=== PATIENT | female | born 1995 | race Caucasian/White ===

== ENCOUNTER → 2019-10-02 15:30 | Outpatient (BNVA) | payer BC, SELFPAY | PROVIDERS: Family Provider Family Medicine; PCP Family Medicine; Visit Provider Nurse Practitioner Family | DX: S62.396A Other fracture of fifth metacarpal bone, right hand, initial encounter for closed fracture (principal); W22.8XXA Striking against or struck by other objects, initial encounter | CPT/HCPCS: 73130 ==

== ENCOUNTER 2023-04-23 11:28 | Emergency (ER) | payer MEDICAID, SELFPAY ==
[2023-04-23 11:41] VITALS: BP 124/82; PULSE 112; RESP 15; TEMP 37.1; O2SAT 100; BMI 24.3
[2023-04-23 12:05] LABS: Basophils % 0.1 %; Eosinophils % 0.4 %; Hematocrit 37.6 % (36-47); Lymphocytes # 1.7 10^3/uL (0.8-4.8); Lymphocytes % 21.3 %; Mean Corpuscular HGB Conc 32.7 g/dL (30-55); Mean Corpuscular Hemoglobin 25.5 pg (27-33); Mean Platelet Volume 9.5 fL (7.4-10.4); Monocytes # 0.9 10^3/uL (0.2-0.9); Monocytes % 10.4 %; Neutrophils # 5.51 10^3/uL (1.8-7.7); Neutrophils % 67.6 %; Nucleated Red Blood Cells % 0 %; Platelet Count 212 10^3/cmm (157-399); Red Blood Count 4.82 10^6/uL (3.85-5.65); Red Cell Distribution Width 18.1 % (12.1-15.1); White Blood Count 8.16 10^3/uL (3.29-11.43)
--- NOTE | 2023-04-23 12:18 | ED_ITS ---
HPI - Abdominal Pain 2 General: Chief Complaint: Abdominal Pain Stated Complaint: abd pain Time Seen by Provider: 04/23/23 11:44 History of Present Illness: 27-year-old female presents emergency de partment with complaints of right lower quadrant abdominal pain that started 2 days ago. She states she is sexually active and does not use contraception. She states the pain is a dull achy and intermittently sharp 3 out of 10 pain. She states it feels like it radiates around to her right flank area. She denies previous surgical intervention. She states she does have intermittent nausea with varying episodes of vomiting. She denies fevers chills or night sweats. Associated Symptoms: Reports nausea and vomiting Review of Systems 2 General: Reports: 10 or more systems reviewed and unremarkable except in HPI and below GI: Reports: abdominal pain, nausea and vomiting [facility] ED 2 PFSH: Social History (Updated 10/02/19 @ 15:12 by Lulu Lozano LPN) Smoking and tobacco/nicotine status: former use of tobacco/nicotine Physical Exam 2 Narrative: EXAM NARRATIVE: Constitutional: the patient appears well nourished and of normal development. Vital signs as documented. No acute distress at present. Alert and oriented-to person, place, time and situation. Head, eyes, ears, nose, mouth, throat: Normocephalic, atraumatic. Pupils-equal, round, reactive to light. No scleral icterus. Normal-appearing external ears. Normal appearing nasal turbinates, no drainage. No obvious oral lesions, posterior oropharynx without erythema or exudates. Neck: Supple, trachea is midline, no lymphadenopathy, no jugular venous distension, thyromegaly, or carotid bruits. Carotid upstrokes are brisk bilaterally. Lungs: clear to auscultation to all lung kruger. Symmetrical rise and fall of chest, no obvious signs of increased work of breathing at present. Cardiac: Regular rate and rhythm, positive S1, S2. No murmurs, rubs or gallops that I can appreciate Abdomen: Soft, right lower quadrant to palpation, normal active bowel sounds to all quadrants. No palpable masses, no organomegaly and abdominal bruits. Extremities: 2+ pulses in the upper extremities that are equal bilaterally, 2+ pulses in the lower extremities that are equal bilaterally. Non-edematous. Moves all extremities well, sensation to all extremities are noted. Skin: Warm, dry, intact. Course 2 Vital Signs: Vital signs: Vital Signs Temperature 98.7 F 04/23/23 11:41 Pulse Rate 112 H 04/23/23 11:41 Respiratory Rate 15 04/23/23 11:41 Blood Pressure 105/64 04/23/23 16:30 Pulse Oximetry 100 04/23/23 11:41 Oxygen Delivery Me thod Room Air 04/23/23 11:41 MDM - Abdominal Pain Medical Decision Making 27-year-old female with right lower quadrant pain with associated nausea and vomiting-I will obtain a CBC, CMP, urinalysis urine hCG provide her Zofran IV as well as IV fluid rehydration and a CT scan of her abdomen pelvis to rule out acute appendicitis. Differential diagnosis includes constipation, ovarian cyst, ectopic , UTI, , renal calculi. Medical Records I reviewed the patient's medical records. Lab Data I reviewed the patient's lab results. 04/23/23 11:58 04/23/23 11:58 Labs/Radiology: Radiology Impressions Obstetrics Ultrasound 04/23/23 14:49 IMPRESSION: There is an intrauterine gestational sac with no identifiable embryo but a yolk sac is visualized. Consider repeat ultrasound in 10-14 days to assess viability if clinically warranted. Laboratory Results WBC 8.16 10^3/uL (3.29-11.43) 04/23/23 11:58 RBC 4.82 10^6/uL (3.85-5.65) 04/23/23 11:58 Hgb 12.30 g/dL (11.27-16.99) 04/23/23 11:58 Hct 37.6 % (36-47) 04/23/23 11:58 MCV 78.0 fl (85-98) L 04/23/23 11:58 MCH 25.5 pg (27-33) L 04/23/23 11:58 MCHC 32.7 g/dL (30-55) 04/23/23 11:58 RDW 18.1 % (12.1-15.1) H 04/23/23 11:58 Plt Count 212 10^3/cmm (157-399) 04/23/23 11:58 MPV 9.5 fL (7.4-10.4) 04/23/23 11:58 Neut % (Auto) 67.6 % 04/23/23 11:58 Lymph % (Auto) 21.3 % 04/23/23 11:58 Dawes % (Auto) 10.4 % 04/23/23 11:58 Eos % (Auto) 0.4 % 04/23/23 11:58 Baso % (Auto) 0.1 % 04/23/23 11:58 Neut # (Auto) 5.51 10^3/uL (1.8-7.7) 04/23/23 11:58 Lymph # (Auto) 1.7 10^3/uL (0.8-4.8) 04/23/23 11:58 Dawes # (Auto) 0.9 10^3/uL (0.2-0.9) 04/23/23 11:58 Eos # (Auto) 0.0 10^3/uL (0.0-0.8) 04/23/23 11:58 Baso # (Auto) 0.0 10^3/uL (0.0-0.1) 04/23/23 11:58 Nucleated RBC % (auto) 0 % 04/23/23 11:58 Nucleated RBCs # 0.0 /100WBC 04/23/23 11:58 Sodium 135 mmol/L (136-145) L 04/23/23 11:58 Potassium 3.1 mmol/L (3.5-5.1) L 04/23/23 11:58 Chloride 98 mmol/L (98-107) 04/23/23 11:58 Carbon Dioxide 24 mmol/L (22-29) 04/23/23 11:58 Anion Gap 16.1 (5-19) 04/23/23 11:58 BUN 4 mg/dL (6-20) L 04/23/23 11:58 Creatinine 0.6 mg/dL (0.5-0.9) 04/23/23 11:58 GFR Calculation 119.9 mL/min (90-130) 04/23/23 11:58 Glucose 105 mg/dL (65-115) 04/23/23 11:58 Calculated Osmolality 277 mOsm/kg (285-295) L 04/23/23 11:58 Calcium 9.0 mg/dL (8.5-10.5) 04/23/23 11:58 Total Bilirubin 0.4 mg/dL (0.15-1.2) 04/23/23 11:58 AST 10 U/L (0-32) 04/23/23 11:58 ALT 6 U/L (0-33) 04/23/23 11:58 Alkaline Phosphatase 65 U/L (35-105) 04/23/23 11:58 Total Protein 7.3 g/dL (6.6-8.7) 04/23/23 11:58 Albumin 3.8 g/dL (3.5-5.2) 04/23/23 11:58 Globulin 3.5 g/dL (1.3-4.6) 04/23/23 11:58 HCG, Qual Positive (Negative) H 04/23/23 13:45 Ser , Semi-Qnt 71882.00 mIU/mL 04/23/23 11:58 Urine Color Light yellow (Yellow) 04/23/23 13:45 Urine Appearance Hazy (CLEAR) A 04/23/23 13:45 Urine pH 6.5 (5-7) 04/23/23 13:45 Ur Specific Powell 1.005 (1.005-1.030) 04/23/23 13:45 Urine Protein Neg (Negative) 04/23/23 13:45 Urine Glucose (UA) Norm (Normal) 04/23/23 13:45 Urine Ketones Negative (Negative) 04/23/23 13:45 Urine Blood Neg (Negative) 04/23/23 13:45 Urine Nitrate Negative (Negative) 04/23/23 13:45 Urine Bilirubin Neg (Negative) 04/23/23 13:45 Urine Urobilinogen Norm mg/dL (Negative) 04/23/23 13:45 Ur Leukocyte Esterase 1+ (Negative) H 04/23/23 13:45 Urine RBC 0-4 /hpf (0-2) H 04/23/23 13:45 Urine WBC 10-15 /hpf (0-5) H 04/23/23 13:45 Ur Squamous Epith Cells 15-25 /hpf (0-5) H 04/23/23 13:45 Amorphous Sediment Not Reportable 04/23/23 13:45 Urine Bacteria 2+ /hpf (NONE) H 04/23/23 13:45 All radiology interpretation(s) finalized by discharge Discharge Plan Discharge Patient Disposition: Home Clinical Impression: Abdominal pain, Acute hypokalemia, Encounter for incidental , UTI (urinary tract infection) Condition: Stable Prescriptions: New cephalexin 500 mg capsule 500 mg PO BID 7 Days Qty: 14 0RF ondansetron HCl 4 mg tablet 4 mg PO DAILY PRN (Reason: nausea and vomiting) 20 Days Qty: 30 0RF Discharge Orders: Discharge ED (Routine); Ordered 04/23/23 Ordered By: Luis Fernando Rashid Referrals: Casey Palacios MD [Physician] - Discharge Diet: Advance as tolerated Discharge Activity: Resume usual activity Patient Instructions: Abdominal Pain (ED), Opioid Safety, Pain Management Stand Alone Forms: Work/School Release Coding Level of Care Code ED Foreign Banknote Teller for Pauline Carey
[2023-04-23 12:22] LABS: Alanine Aminotransferase 6 U/L (0-33); Albumin Level 3.8 g/dL (3.5-5.2); Alkaline Phosphatase 65 U/L (35-105); Anion Gap 16.1 (5-19); Aspartate Amino Transferase 10 U/L (0-32); Blood Urea Nitrogen 4 mg/dL (6-20); Carbon Dioxide 24 mmol/L (22-29); Chloride 98 mmol/L (98-107); Creatinine Clr Calc Pharmacy 149.7891; Globulin 3.5 g/dL (1.3-4.6); Glomerular Filtration Rate 119.9 mL/min (90-130); Glucose 105 mg/dL (65-115); Osmolality Calculated 277 mOsm/kg (285-295); Potassium 3.1 mmol/L (3.5-5.1); Sodium 135 mmol/L (136-145); Total Bilirubin 0.4 mg/dL (0.15-1.2); Total Protein 7.3 g/dL (6.6-8.7)
[2023-04-23] MEDS: sodium chloride 0.9% 1,000 ML 999 ML IV ×2 (13:03→15:43)
[2023-04-23] MEDS: ondansetron 2 mg/ML SDV 2 mL 4 MG IVP (13:11)
[2023-04-23 13:43] VITALS: BP 96/60
[2023-04-23 14:01] LABS: HCG Qualitative Urine. Positive (Negative)
[2023-04-23 14:48] LABS: Bilirubin Urine Neg (Negative); Blood Urine Neg (Negative); Glucose Urine UA Norm (Normal); Ketones Urine Negative (Negative); Leukocyte Esterase Urine 1+ (Negative); Nitrate Urine Negative (Negative); Protein Urine Neg (Negative); Specific Gravity, Urine 1.005 (1.005-1.030); Urine Appearance Hazy (CLEAR); Urine Color Light yellow (Yellow); Urobilinogen Urine Norm (Negative); pH Urine 6.5 (5-7)
[2023-04-23 14:49] LABS: Add Urine Microscopic? YES; Bacteria Urine 2+ /hpf; RBC Urine 0-4 /hpf (0-2); Squamous Epithelial Cell Urine 15-25 /hpf (0-5)
--- NOTE | 2023-04-23 14:49 | USR_ITS ---
PROCEDURE INFORMATION: Exam: US First Trimester, Transabdominal and US , Transvaginal Exam date and time: 04/23/2023 3:16 PM Age: 27 years old Clinical indication: Other: RT abd/flank pain; Gestational age or lmp: 6 weeks 4 days; ; Additional info: R/O ectopic TECHNIQUE: Imaging protocol: Real-time transabdominal obstetrical ultrasound of the maternal pelvis and a first trimester , less than 14 weeks 0 days, with image documentation. Transvaginal imaging was used for better evaluation of the fetus, adnexa, and/or cervix. COMPARISON: CT abdomen pelvis w con* [id number] 03/10/2019 4:58 PM FINDINGS: Gestation: There is an intrauterine gestational sac with no identifiable embryo Yolk sac measures 3.9 mm. Embryonic/ heart rate: Nondetected Extra-embryonic membranes/Placenta: Unremarkable. No subchorionic bleed. Amniotic fluid: Amniotic fluid and extra-amniotic fluid is normal for gestational age. BIOMETRY: Gestational age (AUA): 6 w 4 d Mean sac diameter: 1.5 cm. EGA (MSD) is 6 w 4 d MATERNAL: Uterus: Uterus measures 6.2 cm x 9.04 cm x 5.08 cm. Cervix: Unremarkable. Right ovary/adnexa: Unremarkable ovary. Left ovary/adnexa: Unremarkable ovary. Intraperitoneal space: Small amount of intraperitoneal free fluid. US/US OB <=14 wk fetus w transvag IMPRESSION: There is an intrauterine gestational sac with no identifiable embryo but a yolk sac is visualized. Consider repeat ultrasound in 10-14 days to assess viability if clinically warranted.
[2023-04-23 14:50] LABS: Add Urine Culture? No
[2023-04-23] MEDS: cefTRIAXone 1,000 MG in sodium chloride 0.9% (plus) 50 ML 100 MG IV (15:38)
[2023-04-23 16:30] VITALS: BP 105/64
== END 2023-04-23 16:57 | disposition home or self-care (01) ==
PROVIDERS: Emergency Provider Internal Medicine
DX: O23.40 Unspecified infection of urinary tract in pregnancy, unspecified trimester (principal); N39.0 Urinary tract infection, site not specified; O26.899 Other specified pregnancy related conditions, unspecified trimester; E87.6 Hypokalemia; R10.31 Right lower quadrant pain; Z87.891 Personal history of nicotine dependence
CPT/HCPCS: 36415; 76801; 76817; 80053; 81001; 81025; 84702; 85025; 96374; 96375; 99284; J0696; J2405; J7030

== ENCOUNTER → 2023-08-04 11:54 | Outpatient (BNVA) | payer MEDICAID, SELFPAY | DX: J06.9 Acute upper respiratory infection, unspecified (principal) | CPT/HCPCS: 87400 ==

== ENCOUNTER → 2023-08-23 14:00 | Outpatient (BNVA) | payer MEDICAID, SELFPAY | PROVIDERS: PCP Internal Medicine; Visit Provider Nurse Practitioner Women's Health | DX: Z34.90 Encounter for supervision of normal pregnancy, unspecified, unspecified trimester (principal) | CPT/HCPCS: 80307; 84315; 84443; 85025; 86592; 86762; 86803; 86850; 86900; 87086; 87340; 87491; 87591; 87806 ==

== ENCOUNTER → 2023-08-30 10:55 | Outpatient (BNVA) | payer MEDICAID, SELFPAY | PROVIDERS: PCP Internal Medicine; Visit Provider Obstetrics & Gynecology | DX: Z34.92 Encounter for supervision of normal pregnancy, unspecified, second trimester (principal); Z3A.24 24 weeks gestation of pregnancy | CPT/HCPCS: 76805 ==

== ENCOUNTER → 2023-09-04 15:50 | Outpatient (BNVA) | payer MEDICAID, SELFPAY | PROVIDERS: PCP Internal Medicine; Visit Provider Obstetrics & Gynecology | DX: O09.70 Supervision of high risk pregnancy due to social problems, unspecified trimester (principal); Z3A.00 Weeks of gestation of pregnancy not specified | CPT/HCPCS: 82950 ==

== ENCOUNTER → 2023-10-02 13:26 | Outpatient (BNVA) | payer MEDICAID, SELFPAY | PROVIDERS: PCP Internal Medicine; Visit Provider Obstetrics & Gynecology | DX: Z34.92 Encounter for supervision of normal pregnancy, unspecified, second trimester (principal); Z3A.29 29 weeks gestation of pregnancy | CPT/HCPCS: 76816 ==

== ENCOUNTER → 2023-10-22 08:09 | Outpatient (BNVA) | payer MEDICAID, SELFPAY | PROVIDERS: PCP Internal Medicine; Visit Provider Obstetrics & Gynecology | DX: Z34.90 Encounter for supervision of normal pregnancy, unspecified, unspecified trimester (principal); Z86.19 Personal history of other infectious and parasitic diseases; Z3A.00 Weeks of gestation of pregnancy not specified | CPT/HCPCS: 84315; 87491; 87591 ==

== ENCOUNTER → 2023-11-19 08:12 | Outpatient (BNVA) | payer MEDICAID, SELFPAY | PROVIDERS: PCP Internal Medicine; Visit Provider Obstetrics & Gynecology | DX: O09.70 Supervision of high risk pregnancy due to social problems, unspecified trimester (principal); Z3A.35 35 weeks gestation of pregnancy | CPT/HCPCS: 84315; 87081 ==

== ENCOUNTER → 2023-11-26 09:25 | Outpatient (BNVA) | payer MEDICAID, SELFPAY | PROVIDERS: PCP Internal Medicine; Visit Provider Obstetrics & Gynecology | DX: O09.73 Supervision of high risk pregnancy due to social problems, third trimester (principal); Z3A.37 37 weeks gestation of pregnancy | CPT/HCPCS: 76816; 84315; 85025 ==

== ENCOUNTER → 2023-12-04 07:48 | Outpatient (BNVA) | payer MEDICAID, SELFPAY | PROVIDERS: PCP Internal Medicine; Visit Provider Obstetrics & Gynecology | DX: O09.70 Supervision of high risk pregnancy due to social problems, unspecified trimester (principal); Z3A.00 Weeks of gestation of pregnancy not specified | CPT/HCPCS: 84315 ==

== ENCOUNTER → 2023-12-10 08:14 | Outpatient (BNVA) | payer MEDICAID, SELFPAY | PROVIDERS: PCP Internal Medicine; Visit Provider Obstetrics & Gynecology | DX: Z53.9 Procedure and treatment not carried out, unspecified reason (principal) | CPT/HCPCS: 84315 ==

== ENCOUNTER 2023-12-14 19:28 | Outpatient (CLI) | payer MEDICAID, SELFPAY ==
[2023-12-14 19:38] VITALS: BP 128/80; PULSE 115; TEMP 35.9
[2023-12-14 19:43] VITALS: BMI 32.1
[2023-12-14 19:56] LABS: Bacteria Urine 1+ /hpf; Bilirubin Urine Neg (Negative); Blood Urine Neg (Negative); Glucose Urine UA 2+ (Normal); Ketones Urine 1+ (Negative); Leukocyte Esterase Urine 2+ (Negative); Nitrate Urine Negative (Negative); Protein Urine Trace (Negative); RBC Urine 0-4 /hpf (0-2); Squamous Epithelial Cell Urine 15-25 /hpf (0-5); Urine Appearance Slightly Cloudy (CLEAR); Urine Color Yellow (Yellow); Urobilinogen Urine Neg (Negative); pH Urine 5 (5-7)
[2023-12-14 19:57] LABS: Add Urine Culture? No; Mucus Urine 1+ /hpf
[2023-12-14 20:32] LABS: Nitrazine Paper, PH Negative
[2023-12-14] MEDS: ceFAZolin 2,000 mg SDV 2000 MG IVP (20:57)
[2023-12-14 20:59] VITALS: BP 118/73; PULSE 115
[2023-12-14 21:01] VITALS: RESP 16
[2023-12-14 21:16] VITALS: BP 118/73; PULSE 115; RESP 16
== END 2023-12-14 21:17 | disposition home or self-care (01) ==
LOC: OPOB 19:29 → OBGYN 19:29
PROVIDERS: Visit Provider Obstetrics & Gynecology
DX: O26.899 Other specified pregnancy related conditions, unspecified trimester (principal); Z3A.00 Weeks of gestation of pregnancy not specified; R10.9 Unspecified abdominal pain
CPT/HCPCS: 36415; 59025; 81001; 83986; 99211; J0690

== ENCOUNTER 2023-12-17 09:00 | Inpatient (IN) | payer MEDICAID, SELFPAY ==
[2023-12-17] VITALS (77 sets, daily range): BP systolic 87–141; BP diastolic 50–84; PULSE 86–123; RESP 18; TEMP 36.3–36.7; O2SAT 98–100; BMI 32.1
[2023-12-17 10:16] LABS: Basophils % 0.2 %; Eosinophils # 0.1 10^3/uL (0.0-0.8); Eosinophils % 0.8 %; Hematocrit 31.5 % (36-47); Lymphocytes % 32.6 %; Mean Corpuscular HGB Conc 29.2 g/dL (30-55); Mean Corpuscular Hemoglobin 19.2 pg (27-33); Mean Corpuscular Volume 65.8 fl (85-98); Mean Platelet Volume 10.1 fL (7.4-10.4); Monocytes # 0.7 10^3/uL (0.2-0.9); Monocytes % 5.9 %; Neutrophils # 7.28 10^3/uL (1.8-7.7); Neutrophils % 59.9 %; Nucleated Red Blood Cells % 0.2 %; Platelet Count 322 10^3/cmm (157-399); Red Blood Count 4.79 10^6/uL (3.85-5.65); Red Cell Distribution Width 23.6 % (12.1-15.1); White Blood Count 12.15 10^3/uL (3.29-11.43)
[2023-12-17] MEDS: dextrose 5%-lactated ringers 1,000 ML 125 ML IV ×2 (10:18→21:05)
[2023-12-17] MEDS: oxytocin 30 UNIT/500 ML BAG IV (10:19)
[2023-12-17 10:30] LABS: Slide Review Slide Review Perform
[2023-12-17] MEDS: clindamycin 900 MG/50 ML PREMIX 100 MG IV ×2 (10:36→18:17)
[2023-12-17 10:44] LABS: Amphetamines Screen Urine Negative (Negative); Barbiturates Screen Urine Negative (Negative); Benzodiazepines Screen Urine Negative (Negative); Cocaine Screen Urine Negative (Negative); Opiate Screen Urine Negative (Negative); PCP Screen Urine Negative (Negative); THC Screen Urine Negative (Negative)
--- NOTE | 2023-12-17 13:10 | P.HP_ITS ---
Providers/Chief Complaint 2 Admitting Physician: Casey Palacios MD Primary EDUCATION PROGRAM MANAGER: Casey Palacios MD Chief Complaint: IOL HPI EDUCATION PROGRAM MANAGER History of Present Illness Suzette Schwartz is a 28 year old female EDC December 13, 2023 At 40 w 4 d No complications Admitted for induction of labor No c/o + active movements h/o x two, uncomplicated Present Details : 3 Para: 2 Labs Rubella: Immune RPR: Negative GBS: Positive Medications/Allergies Home Medications Medication Instructions Recorded Confirmed Last Taken Type docosahexaenoic acid 200 mg 200 mg PO DAILY 10/22/23 12/14/23 12/14/23 History capsule ( DHA) famotidine 20 mg tablet (Pepcid) 20 mg PO BID #60 tabs 11/09/23 12/14/23 12/14/23 Rx ferrous sulfate 325 mg (65 mg 325 mg PO BID 12/04/23 12/14/23 12/12/23 History iron) tablet metronidazole 500 mg tablet 2,000 mg (4 x 500 mg) PO ONCE #4 12/14/23 12/14/23 12/14/23 Rx tabs Allergies Allergy/AdvReac Type Severity Reaction Status Date / Time amoxicillin Allergy ALGY-Hives Verified 12/14/23 19:34 PFSH EDUCATION PROGRAM MANAGER 2 PFSH: Medical History Psychiatric care Family History Denies family history of Colon cancer Ovarian cancer Prostate cancer Diabetes Heart disease Hypercholesteremia Breast cancer Hypertension Uterine cancer Thyroid disease Stroke Social History Smoking and tobacco/nicotine status: never used tobacco/nicotine History History History 2 3 Term 2 0 Miscarriages/Ectopic 0 Living Children 2 Care LUKAS Calculator 2 Estimated Delivery Date Method Current WG Current Estimate 12/13/23 Manual 40w 5d Other Estimates 11/21/23 LMP (Certain) 43w 6d 12/07/23 Ultrasound #1 41w 4d Vitals/I&O/Wt Last Vital Signs Temp 98.1 F 12/18/23 06:05 Pulse 99 12/18/23 06:28 Resp 18 12/17/23 18:24 BP 117/70 12/18/23 06:28 Pulse Ox 99 12/17/23 20:52 O2 Del Method Room Air 12/17/23 10:24 12/17/23 12/17/23 12/18/23 14:59 22:59 06:59 Intake Total 85.183 / 85.183 3182.833 / 3268.016 993.916 / 4261.932 Balance 85.183 / 85.183 3182.833 / 3268.016 993.916 / 4261.932 Weight last 48 hrs Weight 205 lb Physical Exam 2 Narrative: Weight 205 lbs; 5?7? VS normal General: comfortable, awake, alert Lungs: clear Cor: RRR FH 38 cm, cephalic Cervix: 2 / 25 / -3 / posterior Ext: no edema External monitor: heart tracing good variability, + accelerations Urinary Catheter Management: Potts: Cath Placed During This Visit: yes Reason for Continuing Indwelling Catheter: Required Immobilization for Trauma or Surgery or Anesthesia Urinary Catheter Date of Insertion: 12/17/23 Urinary Catheter Time of Insertion: 20:56 Data 12/17/23 09:50 Results Labs OB ([facility]): 2 Obstetrics US 11/26/23 Blood Type O Positive 12/17/23 Antibody Screen Negative 12/17/23 Hct 31.5 % (36-47) L 12/17/23 Hgb 9.20 g/dL (11.27-16.99) L 12/17/23 Rho(D) Type Rh positive 12/17/23 Plt Count 322 10^3/cmm (157-399) 12/17/23 Hep Bs Antigen Non-reactive (Nonreactive) 08/23/23 Hepatitis C Antibody Non-reactive (Nonreactive) 08/23/23 Rubella IgG Antibody 42.7 IU/mL (0.0-10.0) H 08/23/23 RPR Nonreactive (Nonreactive) 08/23/23 HIV 1&2 Ab & HIV 1 Ag Non-reactive (Non-Reactiv) 08/23/23 TSH 1.19 uIU/mL (0.27-4.20) 08/23/23 C.trachomatis RNA (TMA) Not detected (NOT DETECTED) N.gonorrhoeae RNA (TMA) Not detected (NOT DETECTED) T. vaginalis Amp RNA Not detected (NOT DETECTED) 10/22/23 Chlamydia/GC Comment See note 10/22/23 Cystic Fibrosis Screen Pending 08/23/23 Glucose 1 Hr 50 gm 126 mg/dL (85-140) 09/04/23 Ser , Semi-Qnt 09763.00 mIU/mL 04/23/23 HCG, Qual Positive (Negative) H 04/23/23 Urine Opiates Screen Negative ng/mL (Negative) 12/17/23 Ur Barbiturates Screen Negative ng/mL (Negative) 12/17/23 Ur Phencyclidine Scrn Negative ng/mL (Negative) 12/17/23 Ur Amphetamines Screen Negative ng/mL (Negative) 12/17/23 U Benzodiazepines Scrn Negative ng/mL (Negative) 12/17/23 Urine Cocaine Screen Negative ng/mL (Negative) 12/17/23 U Marijuana (THC) Screen Negative ng/mL (Negative) 12/17/23 Micro Urine Specimen 08/23/23 A&P Assessment and plan (1) Encounter for induction of labor: 40 w 4 d Admitted for induction of labor Plan Pitocin per protocol GBS +, plan start antibiotics h/o x two Rh + (2) Group B Streptococcus carrier, antepartum: Attestations 2 Medical Necessity Statement*: patient at 40 w 4 d, admitted for induction of labor Coding Level of Care Code Acute Code for Chg Fwd Diagnoses Encounter for induction of labor Z34.90 Group B Streptococcus carrier, antepartum O99.820 Time Spent (min) 30
[2023-12-17] MEDS: fentaNYL 50 mcg/mL INJ 2mL IVP ×2 (17:23→18:24)
[2023-12-17] MEDS: lactated ringers 1,000 ML 999 ML IV ×2 (18:19→20:03)
[2023-12-17] MEDS: ROPivacaine syringe 100 MG/50 ML SYRINGE 10 MG EPIDURAL (20:24)
--- NOTE | 2023-12-17 20:28 | P.ANESASSM_ITS ---
Pre-Anesthetic Assessment Height/Weight: Height 1.7 m Weight 92.986 kg Temp Pulse Resp BP Pulse Ox O2 Del Method 97.3 F L 112 H 18 117/74 99 Room Air 12/17/23 15:46 12/17/23 20:24 12/17/23 18:24 12/17/23 20:24 12/17/23 20:22 12/17/23 10:24 Preop Diagnosis: Active Labor Labor Epidural Familial anesthetic complications: none Last intake: meal 0800 Social No alcohol and No tobacco Exam alert, oriented x 3, clear to auscultation bilaterally and regular rate & rhythm Airway Submandibular: within normal limits Cervical ROM: within normal limits Mallampati: Class II Dentition: full Pulmonary None reported CV/HEM None reported None reported Hepatic None reported GI Gastroesophageal Reflux Disease Metabolic None reported Musc/skel None reported Neuropsych Anxiety Anesthetic Plan ASA status: 2 Anesthesia: Regional (specify below) Other: Patient forgot to tell the TRANSFER ENGINEER that she was treated for UTI with IV antibiotics on Sunday 1x dose, TRANSFER ENGINEER was informed of this post epidural placement. TRANSFER ENGINEER discussed WBC of 12,000 with patient and risk of infection. Medications/Allergies Home Medications Medication Instructions Recorded Confirmed Last Taken Type docosahexaenoic acid 200 mg 200 mg PO DAILY 10/22/23 12/14/23 12/14/23 History capsule ( DHA) famotidine 20 mg tablet (Pepcid) 20 mg PO BID #60 tabs 11/09/23 12/14/23 12/14/23 Rx ferrous sulfate 325 mg (65 mg 325 mg PO BID 12/04/23 12/14/23 12/12/23 History iron) tablet metronidazole 500 mg tablet 2,000 mg (4 x 500 mg) PO ONCE #4 12/14/23 12/14/23 12/14/23 Rx tabs Allergies Allergy/AdvReac Type Severity Reaction Status Date / Time amoxicillin Allergy ALGY-Hives Verified 12/14/23 19:34 Current Medications Generic Name Dose Route Start Last Admin Trade Name Freq PRN Reason Stop Dose Admin Fentanyl 25 - 100 mcg 12/17/23 17:13 12/17/23 18:24 Fentanyl 50 Mcg/Ml Inj 2ml IVP 50 mcg Q1H PRN Administration SEVERE PAIN Lactated Ringer's 1,000 mls @ 999 mls/hr 12/17/23 09:52 12/17/23 20:03 Lactated Ringers IV 999 mls/hr .Q1H1M PRN Administration Per L&D Rescitation Protocol Dextrose/Lactated Ringer's 1,000 mls @ 125 mls/hr 12/17/23 10:00 12/17/23 18:19 Dextrose 5%-Lactated Ringers IV Infused .Q8H JOSE Infusion Clindamycin HCl/Dextrose 900 mg in 50 mls @ 100 mls/hr 12/17/23 10:15 12/17/23 19:04 Cleocin IV Infused Q8H JOSE Infusion Protocol Oxytocin 30 unit in 500 mls @ 1 mls/hr 12/17/23 10:15 12/17/23 15:45 Pitocin IV 18 milliunit/min .Q24H JOSE 18 mls/hr Titration Protocol 1 MILLIUNIT/MIN Lactated Ringer's 1,000 mls @ 999 mls/hr 12/17/23 17:17 12/17/23 20:04 Lactated Ringers IV Infused .Q1H1M PRN Infusion See label comments Ropivacaine 100 mg in 50 mls @ 10 mls/hr 12/17/23 17:30 12/17/23 20:24 Naropin Syringe EPIDURAL 10 mls/hr .Q5H JOSE Administration PFSH Anesthesia Medical History Psychiatric care Family History Denies family history of Colon cancer Ovarian cancer Prostate cancer Diabetes Heart disease Hypercholesteremia Breast cancer Hypertension Uterine cancer Thyroid disease Stroke Social History Smoking and tobacco/nicotine status: never used tobacco/nicotine Female Reproductive History : 3 Data Anesthesia 12/17/23 09:50 Short CBC 12/17/23 Range/Units 09:50 WBC 12.15 H (3.29-11.43) 10^3/uL Hgb 9.20 L (11.27-16.99) g/dL Hct 31.5 L (36-47) % MCV 65.8 L (85-98) fl Plt Count 322 (157-399) 10^3/cmm Neut % (Auto) 59.9 % Neut # (Auto) 7.28 (1.8-7.7) 10^3/uL Blood Bank 12/17/23 09:50 Blood Type O Positive Rho(D) Type Rh positive Antibody Screen Negative Cardiac Studies: 2 No Data to Display Anesthesia Procedures Epidural Time Out Performed: Yes Consents Signed: Procedure Consent Consent: from patient, risks and benefits reviewed (including elevated WBC.) and patient agrees to proceed Lumbar Level: L3-L4 Epidural position: sitting Epidural procedure: sterile prep of area, 1% lidocaine to numb the area, negative for paresthesia passed, test dose given, 1.5% xylocaine 1:200k epi, placed PCEA, no systemic response, sterile dressing applied, L.U.D. no apparent complications and 0.2% Ropiavacaine @ mls/hr (10ml/hr) Additional Comments: ERNESTO at 6cm on first attempt, catheter threaded to 11cm. Test dose given with no systemic response. Placed on PCEA 10ml/hr.
[2023-12-18] VITALS (47 sets, daily range): BP systolic 99–131; BP diastolic 60–86; PULSE 87–116; RESP 16–17; TEMP 36.2–36.8; O2SAT 98–99
--- NOTE | 2023-12-18 00:10 | P.PN_ITS ---
BELL PERSON Subjective 2 Subjective: Interval history: heart tracing with good [id number] variability + variable decelerations Cervix: 4 cm / 50% / -2 / posterior Patient had spontaneous rupture of membranes, clear fluid scalp electrode applied Labor: Station: +1 Amniotic Membrane Status: Ruptured Monitor Mode: External Contraction Pattern: Regular Vitals/I&O/Wt Last Vital Signs Temp 98.1 F 12/18/23 06:05 Pulse 105 H 12/18/23 07:27 Resp 18 12/17/23 18:24 BP 108/60 12/18/23 07:27 Pulse Ox 99 12/17/23 20:52 O2 Del Method Room Air 12/17/23 10:24 12/17/23 12/18/23 12/18/23 22:59 06:59 14:59 Intake Total 3182.833 / 3268.016 993.916 / 4261.932 Balance 3182.833 / 3268.016 993.916 / 4261.932 Weight last 48 hrs Weight 205 lb Physical Exam 2 Urinary Catheter Management: Potts: Cath Placed During This Visit: yes Reason for Continuing Indwelling Catheter: Required Immobilization for Trauma or Surgery or Anesthesia Urinary Catheter Date of Insertion: 12/17/23 Urinary Catheter Time of Insertion: 20:56 Data 12/17/23 09:50 A&P Assessment and plan (1) Encounter for induction of labor: Attestations 2 Medical Necessity Statement*: patient at 40 w 4 d, admitted for induction of labor Coding Level of Care Code Acute Code for Chg Fwd Diagnoses Encounter for induction of labor Z34.90 Time Spent (min) 30
[2023-12-18] MEDS: ROPivacaine syringe 100 MG/50 ML SYRINGE 10 MG EPIDURAL ×2 (00:16→04:04)
[2023-12-18] MEDS: calcium carbonate 500 mg Chew Tablet 1000 MG PO (00:17)
--- NOTE | 2023-12-18 01:50 | P.PN_ITS ---
HASSOCK MAKER Subjective 2 Subjective: Interval history: fetus reassuring continue pitocin Labor: Station: +1 Amniotic Membrane Status: Ruptured Monitor Mode: External Contraction Pattern: Regular Vitals/I&O/Wt Last Vital Signs Temp 98.1 F 12/18/23 06:05 Pulse 105 H 12/18/23 07:27 Resp 18 12/17/23 18:24 BP 108/60 12/18/23 07:27 Pulse Ox 99 12/17/23 20:52 O2 Del Method Room Air 12/17/23 10:24 12/17/23 12/18/23 12/18/23 22:59 06:59 14:59 Intake Total 3182.833 / 3268.016 993.916 / 4261.932 Balance 3182.833 / 3268.016 993.916 / 4261.932 Weight last 48 hrs Weight 205 lb Physical Exam 2 Urinary Catheter Management: Potts: Cath Placed During This Visit: yes Reason for Continuing Indwelling Catheter: Required Immobilization for Trauma or Surgery or Anesthesia Urinary Catheter Date of Insertion: 12/17/23 Urinary Catheter Time of Insertion: 20:56 Data 12/17/23 09:50 A&P Assessment and plan (1) Encounter for induction of labor: Attestations 2 Medical Necessity Statement*: patient at 40 w 4 d, admitted for induction of labor Coding Level of Care Code Acute Code for Chg Fwd Diagnoses Encounter for induction of labor Z34.90 Time Spent (min) 15
[2023-12-18] MEDS: clindamycin 900 MG/50 ML PREMIX 100 MG IV (02:51)
[2023-12-18] MEDS: dextrose 5%-lactated ringers 1,000 ML 125 ML IV (03:35)
--- NOTE | 2023-12-18 07:35 | PM.DELIVERY ---
Delivery Note: Date of delivery: December 18, 2023 Pre-delivery diagnoses: 40 w 4 d admitted for induction of labor Post-delivery diagnoses: 40 w 4 d admitted for induction of labor vaginal delivery Procedure: induction of labor vaginal delivery Op report anesthesia: Epidural Delivering Physician: Casey Palacios MD Estimated blood loss (mL): 300 Findings: , vigorous female infant cord gases and blood obtained normal placenta and cord no episiotomy or lacerations EBL: 300 cc no complications Pre-Delivery Course: normal labor course Delivery: vaginal Post-Delivery Status: good History History History 3 Term 2 0 Miscarriages/Ectopic 0 Living Children 2 A&P Assessment and plan (1) Encounter for induction of labor: Coding Level of Care Code Acute Code for Chg Fwd Diagnoses Encounter for induction of labor Z34.90 Time Spent (min) 60
[2023-12-18] MEDS: ibuprofen 800 mg tablet PO ×3 (09:47→20:48)
[2023-12-18] MEDS: PRENATAL VIT NO.130/IRON/FOLIC 1 EACH TABLET PO (09:47)
[2023-12-18] MEDS: benzocaine-menthol 78 gm Canister 1 SPRAY TOPICAL (09:47)
[2023-12-18] MEDS: docusate sodium 100 mg Capsule PO ×2 (09:48→17:11)
[2023-12-18] MEDS: ferrous sulfate EC 325 mg Tablet PO (10:38)
--- NOTE | 2023-12-18 12:33 | ANE.PACU2 ---
Inpatient post-anesthesia follow up: Airway intact: Yes Vital signs: Temperature 98.3 F Pulse Rate 103 Respiratory Rate 17 Blood Pressure 99/65 Pulse Oximetry 98 Oxygen Delivery Me thod Room Air Oxygen Flow Rate Fraction of Inspir ed Oxygen Hydration adequate: Yes Nausea and vomiting: No Pain level: 1 Mental status: Baseline Epidural Start/End: Epidural Start Date: 12/17/23 Epidural Start Time: 20:00 Epidural End Date: 12/18/23 Epidural End Time: 11:06
[2023-12-18] MEDS: acetaminophen 325 mg Tablet 650 MG PO (13:54)
[2023-12-18] MEDS: HYDROcodone-acetaminophen 5-325 mg Tablet PO (17:11)
[2023-12-18 19:48] LABS: Hematocrit 27.3 % (36-47); Mean Corpuscular HGB Conc 28.9 g/dL (30-55); Mean Corpuscular Hemoglobin 18.8 pg (27-33); Mean Corpuscular Volume 64.8 fl (85-98); Mean Platelet Volume 10.3 fL (7.4-10.4); Platelet Count 274 10^3/cmm (157-399); Red Blood Count 4.21 10^6/uL (3.85-5.65); Red Cell Distribution Width 23.3 % (12.1-15.1); White Blood Count 16.14 10^3/uL (3.29-11.43)
[2023-12-19 05:00] VITALS: BP 103/66; PULSE 92; RESP 16; TEMP 36.6; O2SAT 99
[2023-12-19] MEDS: PRENATAL VIT NO.130/IRON/FOLIC 1 EACH TABLET PO (08:59)
[2023-12-19] MEDS: ibuprofen 800 mg tablet PO ×3 (08:59→20:01)
[2023-12-19] MEDS: ferrous sulfate EC 325 mg Tablet PO (08:59)
[2023-12-19] MEDS: docusate sodium 100 mg Capsule PO ×2 (08:59→18:33)
[2023-12-19 11:18] VITALS: BP 110/70; PULSE 109; RESP 18; TEMP 36.7; O2SAT 99
--- NOTE | 2023-12-19 13:05 | P.PN_ITS ---
COMPUTATIONAL SCIENCES PROFESSOR Subjective 2 Subjective: Interval history: no c/o no headaches, dizziness, nausea, abdominal pain, bleeding normal lochia no perineal pain eating, voiding, ambulating well Labor: Station: +1 Amniotic Membrane Status: Ruptured Monitor Mode: External Contraction Pattern: Regular Vitals/I&O/Wt Last Vital Signs Temp 98.2 F 12/20/23 04:32 Pulse 105 H 12/20/23 04:32 Resp 16 12/20/23 04:32 BP 104/66 12/20/23 04:32 Pulse Ox 98 12/20/23 04:32 O2 Del Method Room Air 12/20/23 04:32 Physical Exam 2 Narrative: afebrile, VS normal comfortable, awake, alert Abd: soft, nontender. fundus firm Ext: no edema; nontender Urinary Catheter Management: Potts: Cath Placed During This Visit: yes, but has since been removed by the nurse Reason for Continuing Indwelling Catheter: Decision to DC Catheter Urinary Catheter Date of Insertion: 12/17/23 Urinary Catheter Time of Insertion: 20:56 Date Urinary Catheter Removed: 12/18/23 Time Urinary Catheter Discontinued: 07:04 Data 12/18/23 19:40 A&P Assessment and plan (1) Vaginal delivery: PPD #1 doing well normal course continue care Attestations 2 Medical Necessity Statement*: patient s/p vaginal delivery Coding Level of Care Code Acute Code for Chg Fwd Diagnoses Vaginal delivery O80 Time Spent (min) 20
[2023-12-19 16:48] VITALS: BP 117/79; PULSE 95; RESP 16; TEMP 36.6; O2SAT 98
[2023-12-19 20:01] VITALS: BP 137/94; PULSE 108; RESP 16; TEMP 36.8; O2SAT 100
[2023-12-20 04:24] VITALS: PULSE 85; RESP 16; TEMP 36.9; O2SAT 98
[2023-12-20 04:32] VITALS: BP 104/66; PULSE 105; RESP 16; TEMP 36.8; O2SAT 98
[2023-12-20] MEDS: docusate sodium 100 mg Capsule PO (11:04)
[2023-12-20] MEDS: ferrous sulfate EC 325 mg Tablet PO (11:04)
[2023-12-20] MEDS: ibuprofen 800 mg tablet PO (11:04)
[2023-12-20] MEDS: PRENATAL VIT NO.130/IRON/FOLIC 1 EACH TABLET PO (11:04)
--- NOTE | 2023-12-20 13:05 | PM.OBGYPN ---
[employer] Subjective Subjective: Interval history: no c/o no bleeding, pain eating, voiding, ambulating well caring for without any problems Labor: Station: +1 Amniotic Membrane Status: Ruptured Monitor Mode: External Contraction Pattern: Regular Vitals/I&O/Wt Last Vital Signs Temp 98.2 F 12/20/23 04:32 Pulse 105 H 12/20/23 04:32 Resp 16 12/20/23 04:32 BP 104/66 12/20/23 04:32 Pulse Ox 98 12/20/23 04:32 O2 Del Method Room Air 12/20/23 04:32 Physical Exam Narrative: afebrile, VS normal comfortable, awake, alert Abd: soft, nontender. fundus firm Ext: no edema; nontender Urinary Catheter Management: Potts: Cath Placed During This Visit: yes, but has since been removed by the nurse Reason for Continuing Indwelling Catheter: Decision to DC Catheter Urinary Catheter Date of Insertion: 12/17/23 Urinary Catheter Time of Insertion: 20:56 Date Urinary Catheter Removed: 12/18/23 Time Urinary Catheter Discontinued: 07:04 Data 12/18/23 19:40 A&P Assessment and plan (1) Vaginal delivery: PPD #2 doing well discharge to home today instructions and precautions given call/return if fever, chills, headache, blurry vision, nausea, vomiting, abdominal pain; vaginal bleeding or discharge; shortness of breath, chest pain, leg pains or swelling; inability to void, perineal pain or swelling; feelings of depression or mood changes; thoughts of suicide or harming others; inability to care for baby. f/u in 6 weeks or PRN Attestations Medical Necessity Statement*: patient s/p vaginal delivery, plan to discharge to home today Coding Level of Care Code Acute Code for Chg Fwd Diagnoses Vaginal delivery O80 Time Spent (min) 20
--- NOTE | 2023-12-20 14:05 | PM.OBGYDC ---
Discharge Providers CONSTRUCTION PROJECT ASSISTANT Date of Admission: 12/17/23 09:00 Date of Discharge: 12/20/23 Attending Provider at Admission: Casey Palacios MD Attending Provider at Discharge: Casey Palacios MD Consults: none Primary CONSTRUCTION PROJECT ASSISTANT: Casey Palacios MD Diagnoses at Discharge Discharge Diagnosis (1) Vaginal delivery: Details from hospital stay: 27 y.o. at 40 w 4 d no complications admitted for induction of labor patient received pitocin per protocol fetus was reassuring throughout had normal labor course proceeded to vaginal delivery without any complications She had an uneventful course and was discharged to home on the second day Status: Acute Reason for Visit Reason for Visit: IOL Brief History: 27 y.o. at 40 w 4 d no complications admitted for induction of labor Hospital Course Hospital Course 27 y.o. at 40 w 4 d no complications admitted for induction of labor patient received pitocin per protocol fetus was reassuring throughout had normal labor course proceeded to vaginal delivery without any complications She had an uneventful course and was discharged to home on the second day Information Peripartum Data: Infant Delivery Method: Vaginal Laceration description: None Episiotomy description: None complications: none Physical Exam Narrative: afebrile, VS normal comfortable, awake, alert Abd: soft, nontender. fundus firm Ext: no edema; nontender Urinary Catheter Management: Potts: Cath Placed During This Visit: yes, but has since been removed by the nurse Reason for Continuing Indwelling Catheter: Decision to DC Catheter Urinary Catheter Date of Insertion: 12/17/23 Urinary Catheter Time of Insertion: 20:56 Date Urinary Catheter Removed: 12/18/23 Time Urinary Catheter Discontinued: 07:04 History History History 3 Term 2 0 Miscarriages/Ectopic 0 Living Children 2 Discharge Data Studies Completed and Pending Laboratory Results WBC 16.14 10^3/uL (3.29-11.43) H 12/18/23 19:40 RBC 4.21 10^6/uL (3.85-5.65) 12/18/23 19:40 Hgb 7.90 g/dL (11.27-16.99) L 12/18/23 19:40 Hct 27.3 % (36-47) L 12/18/23 19:40 MCV 64.8 fl (85-98) L 12/18/23 19:40 MCH 18.8 pg (27-33) L 12/18/23 19:40 MCHC 28.9 g/dL (30-55) L 12/18/23 19:40 RDW 23.3 % (12.1-15.1) H 12/18/23 19:40 Plt Count 274 10^3/cmm (157-399) 12/18/23 19:40 MPV 10.3 fL (7.4-10.4) 12/18/23 19:40 Neut % (Auto) 59.9 % 12/17/23 09:50 Lymph % (Auto) 32.6 % 12/17/23 09:50 [place] % (Auto) 5.9 % 12/17/23 09:50 Eos % (Auto) 0.8 % 12/17/23 09:50 Baso % (Auto) 0.2 % 12/17/23 09:50 Neut # (Auto) 7.28 10^3/uL (1.8-7.7) 12/17/23 09:50 Lymph # (Auto) 4.0 10^3/uL (0.8-4.8) 12/17/23 09:50 [place] # (Auto) 0.7 10^3/uL (0.2-0.9) 12/17/23 09:50 Eos # (Auto) 0.1 10^3/uL (0.0-0.8) 12/17/23 09:50 Baso # (Auto) 0.0 10^3/uL (0.0-0.1) 12/17/23 09:50 Nucleated RBC % (auto) 0.2 % 12/17/23 09:50 Nucleated RBCs # 0.0 /100WBC 12/17/23 09:50 Urine Opiates Screen Negative ng/mL (Negative) 12/17/23 10:28 Ur Barbiturates Screen Negative ng/mL (Negative) 12/17/23 10:28 Ur Phencyclidine Scrn Negative ng/mL (Negative) 12/17/23 10:28 Ur Amphetamines Screen Negative ng/mL (Negative) 12/17/23 10:28 U Benzodiazepines Scrn Negative ng/mL (Negative) 12/17/23 10:28 Urine Cocaine Screen Negative ng/mL (Negative) 12/17/23 10:28 U Marijuana (THC) Screen Negative ng/mL (Negative) 12/17/23 10:28 Blood Type O Positive 12/17/23 09:50 Rho(D) Type Rh positive 12/17/23 09:50 Antibody Screen Negative 12/17/23 09:50 Procedures Performed labor induction vaginal delivery Vitals Last Vital Signs Temp 98.2 F 12/20/23 04:32 Pulse 105 H 12/20/23 04:32 Resp 16 12/20/23 04:32 BP 104/66 12/20/23 04:32 Pulse Ox 98 12/20/23 04:32 O2 Del Method Room Air 12/20/23 04:32 Results Labs OB ([facility]): Obstetrics US 11/26/23 Blood Type O Positive 12/17/23 Antibody Screen Negative 12/17/23 Hct 27.3 % (36-47) L 12/18/23 Hgb 7.90 g/dL (11.27-16.99) L 12/18/23 Rho(D) Type Rh positive 12/17/23 Plt Count 274 10^3/cmm (157-399) 12/18/23 Hep Bs Antigen Non-reactive (Nonreactive) 08/23/23 Hepatitis C Antibody Non-reactive (Nonreactive) 08/23/23 Rubella IgG Antibody 42.7 IU/mL (0.0-10.0) H 08/23/23 RPR Nonreactive (Nonreactive) 08/23/23 HIV 1&2 Ab & HIV 1 Ag Non-reactive (Non-Reactiv) 08/23/23 TSH 1.19 uIU/mL (0.27-4.20) 08/23/23 C.trachomatis RNA (TMA) Not detected (NOT DETECTED) 10/22/23 N.gonorrhoeae RNA (TMA) Not detected (NOT DETECTED) 10/22/23 T. vaginalis Amp RNA Not detected (NOT DETECTED) 10/22/23 Chlamydia/GC Comment See note 10/22/23 Cystic Fibrosis Screen Pending 08/23/23 Glucose 1 Hr 50 gm 126 mg/dL (85-140) 09/04/23 Ser , Semi-Qnt 34947.00 mIU/mL 04/23/23 HCG, Qual Positive (Negative) H 04/23/23 Urine Opiates Screen Negative ng/mL (Negative) 12/17/23 Ur Barbiturates Screen Negative ng/mL (Negative) 12/17/23 Ur Phencyclidine Scrn Negative ng/mL (Negative) 12/17/23 Ur Amphetamines Screen Negative ng/mL (Negative) 12/17/23 U Benzodiazepines Scrn Negative ng/mL (Negative) 12/17/23 Urine Cocaine Screen Negative ng/mL (Negative) 12/17/23 U Marijuana (THC) Screen Negative ng/mL (Negative) 12/17/23 Micro Urine Specimen 08/23/23 Discharge Plan Discharge Patient Disposition: Home Condition: Stable Prescriptions: Continued DHA 200 mg capsule 200 mg PO DAILY ferrous sulfate 325 mg (65 mg iron) tablet 325 mg PO BID famotidine [Pepcid] 20 mg tablet 20 mg PO BID Qty: 60 2RF Discontinued metronidazole 500 mg tablet 2,000 mg PO ONCE Qty: 4 0RF Rx Instructions: Take all 4 tablets as a one time dose Discharge Orders: Discharge Order (Routine); Ordered 12/20/23 Ordered By: Casey Palacios Referrals: Casey Palacois MD [Physician] - 01/30/24 1:30 pm Discharge Diet: Usual diet Discharge Activity: Increase activity as tolerated Patient Instructions: Depression (DC), Bleeding (DC), Preeclampsia and Eclampsia After Delivery (GEN), Hemorrhage (DC), OB Discharge Report, OB Food/Drug Interaction Guide, OB Care at Home, Opioid Safety, OB Home Care, OB Vaginal Deliveries - [facility] Discharge Attestations CONSTRUCTION PROJECT ASSISTANT Time Spent in Discharge Care*: less than 30 min Coding Level of Care Code Acute Code for Chg Fwd Diagnoses Vaginal delivery O80 Time Spent (min) 20
== END 2023-12-20 12:34 | disposition home or self-care (01) | DRG 807 ==
LOC: OPOB 09:04 → OBGYN 09:06
PROVIDERS: Admitting Provider Obstetrics & Gynecology; Visit Provider Obstetrics & Gynecology
DX: O48.0 Post-term pregnancy (principal); O99.824 Streptococcus B carrier state complicating childbirth; Z37.0 Single live birth; Z3A.40 40 weeks gestation of pregnancy; Z79.899 Other long term (current) drug therapy; Z88.1 Allergy status to other antibiotic agents
CPT/HCPCS: 36415; 51702; 59025; 59409; 80306; 85025; 85027; 86850; 86900; 96374; 96376; J2590; J2795; J3010; J3490; J7120; J7121